=== PATIENT | male | born 1965 | race Caucasian/White ===

== ENCOUNTER 2021-10-14 14:22 | Outpatient (CLI) | payer BC ==
[2021-10-14 15:43] LABS: #Eosinphils 0.5 10x3/uL (0.0-0.5); #Monocytes 0.9 10x3/uL (0.0-1.1); #Neutrophils 6.1 10x3/uL (1.5-8.4); %Basophils 0.2 % (0.0-2.0); %Eosinophils 5.4 % (0.0-6.0); %Lymphocytes 18.2 % (18.0-47.0); %Monocytes 9.2 % (0.0-10.0); %Neutrophils 66.5 % (40.0-75.0); Hemoglobin 10.9 g/dL (13.5-17.5); Mean Corpuscular HGB CONC 33.1 g/dL (32.0-36.0); Mean Corpuscular Hemoglobin 28.7 pg (27.0-33.0); Mean Corpuscular Volume 86.6 fl (81.2-95.1); Mean Platelet Volume 9.1 fl (7.4-10.4); Platelet Count 481 10x3/uL (150-450); White Blood Cell (WBC) Count 9.2 10x3/uL (3.5-10.5)
[2021-10-14 16:25] LABS: Anion Gap 12 mmol/L (10-20); BUN (Urea Nitrogen) 14 mg/dL (8.4-25.7); Calc. Creatinine Clearance 0 mL/min (70-130); Calcium 9.2 mg/dL (7.8-10.44); Carbon Dioxide 27 mmol/L (22-29); Chloride 105 mmol/L (98-107); Estimated GFR 109; Glucose 82 mg/dL (70-105); Potassium 4.4 mmol/L (3.5-5.1); Sodium 140 mmol/L (136-145)
== END 2021-10-14 14:23 | disposition home or self-care (01) ==
LOC: LABBT 14:22
PROVIDERS: ATTEND Orthopaedic Surgery Hand Surgery
DX: Z01.818 Encounter for other preprocedural examination (principal); S62.211 Bennett's fracture, right hand; Z20.822 Contact with and (suspected) exposure to COVID-19
CPT/HCPCS: 80048; 85025; 87811; 93005; 93010

== ENCOUNTER 2021-10-16 09:42 | Day surgery (SDC) | payer OTHER, BC ==
[2021-10-15 11:32] VITALS: BMI 35.5
[2021-10-16] MEDS ORDERED: Bacitracin Zinc Ointment 30 gm TUBE ONE (12:01)
[2021-10-16] MEDS ORDERED: Bupivacaine PF 0.5% 30 ML VIAL ONE ×2 (12:01→14:10)
[2021-10-16] MEDS ORDERED: Neomycin-Polymyxin 1 ML AMP ONE (12:01)
[2021-10-16] MEDS ORDERED: Midazolam HCl 2 mg/2 ml Vial ONE ×2 (13:32)
[2021-10-16] MEDS ORDERED: Fentanyl 100 MCG/2 ML VIAL ONE (13:32)
[2021-10-16] MEDS ORDERED: HYDROmorphone 0.5 MG/0.5 ML SYRINGE ONE (13:33)
[2021-10-16] MEDS ORDERED: fentaNYL Citrate/PF 100 MCG/2 ML SYRINGE ONE ×2 (13:33→16:12)
[2021-10-16] MEDS ORDERED: CEFAZOLIN 2 GM VIAL ONE (13:42)
[2021-10-16] MEDS ORDERED: Sodium Chloride 0.9% 100 ML ONE (13:42)
[2021-10-16] MEDS ORDERED: Bupivacaine 0.25% HCL 30 ML VIAL ONE (14:10)
[2021-10-16] MEDS ORDERED: PROPOFOL 200 MG/20 ML VIAL ONE (14:12)
[2021-10-16] MEDS ORDERED: Lidocaine 1% MPF 2 ML VIAL ONE (14:12)
[2021-10-16] MEDS ORDERED: ePHEDrine 50 MG/ML VIAL ONE (14:12)
[2021-10-16] MEDS ORDERED: Dexamethasone 20 MG/5 ML VIAL ONE (14:12)
== END 2021-10-16 17:15 | disposition home or self-care (01) ==
LOC: SDC 09:42
PROVIDERS: ATTEND Orthopaedic Surgery Hand Surgery
PROC: 0PSP34Z Reposition Right Metacarpal with Internal Fixation Device, Percutaneous Approach (ICD-10-PCS; principal; 2021-10-16)
DX: S62.211 Bennett's fracture, right hand (principal); S63.041A Subluxation of carpometacarpal joint of right thumb, initial encounter; T84.84XA Pain due to internal orthopedic prosthetic devices, implants and grafts, initial encounter; I10 Essential (primary) hypertension; Z79.899 Other long term (current) drug therapy; Z88.5 Allergy status to narcotic agent; Z88.8 Allergy status to other drugs, medicaments and biological substances; V89.2XXA Person injured in unspecified motor-vehicle accident, traffic, initial encounter
CPT/HCPCS: 76000; C1713; J0690; J1100; J1170; J2250; J2704; J3010; J3490; S0020

== ENCOUNTER 2021-10-20 13:45 | Outpatient (CLI) | payer BC | END 2021-10-20 13:46 | disposition home or self-care (01) | LOC: BICRAD 13:45 | PROVIDERS: ATTEND Family Medicine | DX: S22.42XD Multiple fractures of ribs, left side, subsequent encounter for fracture with routine healing (principal); S42.102A Fracture of unspecified part of scapula, left shoulder, initial encounter for closed fracture; R91.8 Other nonspecific abnormal finding of lung field; J98.4 Other disorders of lung | CPT/HCPCS: 71046 ==

== ENCOUNTER 2021-12-28 10:48 | Outpatient (CLI) | payer BC | END 2021-12-28 10:49 | disposition home or self-care (01) | LOC: SCSMRI 10:48 | PROVIDERS: ATTEND Orthopaedic Surgery Hand Surgery | DX: M77.8 Other enthesopathies, not elsewhere classified (principal); M70.22 Olecranon bursitis, left elbow ==